=== PATIENT | female | born 1950 | race Two or more races ===

== ENCOUNTER 2021-01-02 13:13 | Outpatient (CLI) | payer OTHER ==
[2021-02-14] MEDS ORDERED: TOPROL XL25 M1 PO (10:38)
[2021-02-14] MEDS ORDERED: FOSAMAX70 MG PO (10:40)
== END 2021-01-02 13:24 | disposition home or self-care (01) ==
LOC: TOM 13:13
PROVIDERS: ATTEND Otolaryngology Otology & Neurotology
DX: H00.11 Chalazion right upper eyelid (principal); H74.21 Discontinuity and dislocation of right ear ossicles

== ENCOUNTER 2021-01-15 10:42 | Outpatient (CLI) | payer OTHER | END 2021-01-15 12:51 | disposition home or self-care (01) | LOC: OFIC 805 10:42 | PROVIDERS: ATTEND Otolaryngology Otology & Neurotology | DX: H90.A11 Conductive hearing loss, unilateral, right ear with restricted hearing on the contralateral side (principal); H73.821 Atrophic nonflaccid tympanic membrane, right ear ==

== ENCOUNTER 2021-02-21 08:56 | Day surgery (SDC) | payer OTHER ==
[~2021-02-21 08:56] MED LIST: FOSAMAX70 MG PO; TOPROL XL25 M1 PO
[2021-02-21] MEDS ORDERED: AMOXICILLIN500 MG PO (15:18)
== END 2021-02-21 20:05 | disposition home or self-care (01) ==
LOC: CIR.AMB 08:56
PROVIDERS: ATTEND Otolaryngology Otology & Neurotology
DX: H90.A11 Conductive hearing loss, unilateral, right ear with restricted hearing on the contralateral side (principal); H73.811 Atrophic flaccid tympanic membrane, right ear; H74.21 Discontinuity and dislocation of right ear ossicles; Z20.822 Contact with and (suspected) exposure to COVID-19

== ENCOUNTER 2021-02-26 10:39 | Outpatient (CLI) | payer OTHER ==
[~2021-02-26 10:39] MED LIST changes: +AMOXICILLIN500 MG PO
== END 2021-02-26 12:41 | disposition home or self-care (01) ==
LOC: OFIC 805 10:39
PROVIDERS: ATTEND Otolaryngology Otology & Neurotology
DX: H90.A11 Conductive hearing loss, unilateral, right ear with restricted hearing on the contralateral side (principal); H73.811 Atrophic flaccid tympanic membrane, right ear